=== PATIENT | female | born 2000 | race Hispanic/Latino ===

== ENCOUNTER 2020-05-25 09:20 | Outpatient (CLI) | payer MEDICAID | END 2020-05-25 09:21 | disposition home or self-care (01) | LOC: CSHWCC 09:20 | PROVIDERS: ATTEND Nurse Practitioner Family | DX: T81.89XD Other complications of procedures, not elsewhere classified, subsequent encounter (principal); K65.1 Peritoneal abscess; F32.9 Major depressive disorder, single episode, unspecified; G89.11 Acute pain due to trauma | CPT/HCPCS: 97605 ==

== ENCOUNTER 2020-05-28 11:09 | Outpatient (CLI) | payer MEDICAID | END 2020-05-28 11:10 | disposition home or self-care (01) | LOC: CSHWCC 11:09 | PROVIDERS: ATTEND Nurse Practitioner Family | DX: T81.89XD Other complications of procedures, not elsewhere classified, subsequent encounter (principal); F32.9 Major depressive disorder, single episode, unspecified; G89.11 Acute pain due to trauma; K65.1 Peritoneal abscess | CPT/HCPCS: 97605; 99213; G0463 ==

== ENCOUNTER 2020-06-01 14:41 | Outpatient (CLI) | payer MEDICAID | END 2020-06-01 14:42 | disposition home or self-care (01) | LOC: CSHWCC 14:41 | PROVIDERS: ATTEND Nurse Practitioner Family | DX: T81.89XD Other complications of procedures, not elsewhere classified, subsequent encounter (principal); F32.9 Major depressive disorder, single episode, unspecified; G89.11 Acute pain due to trauma; K65.1 Peritoneal abscess | CPT/HCPCS: 99212; G0463 ==

== ENCOUNTER 2020-06-09 08:59 | Outpatient (CLI) | payer MEDICAID | END 2020-06-09 09:00 | disposition home or self-care (01) | LOC: CSHWCC 08:59 | PROVIDERS: ATTEND Nurse Practitioner Family | DX: T81.89XD Other complications of procedures, not elsewhere classified, subsequent encounter (principal); F32.9 Major depressive disorder, single episode, unspecified; G89.11 Acute pain due to trauma; K65.1 Peritoneal abscess | CPT/HCPCS: 99212; G0463 ==

== ENCOUNTER 2020-06-22 11:36 | Outpatient (CLI) | payer MEDICAID | END 2020-06-22 11:37 | disposition home or self-care (01) | LOC: CSHWCC 11:36 | PROVIDERS: ATTEND Nurse Practitioner Family | DX: T81.89XD Other complications of procedures, not elsewhere classified, subsequent encounter (principal); K65.1 Peritoneal abscess; F32.9 Major depressive disorder, single episode, unspecified; G89.11 Acute pain due to trauma | CPT/HCPCS: 99212; G0463 ==

== ENCOUNTER 2020-06-29 10:26 | Outpatient (CLI) | payer MEDICAID | END 2020-06-29 10:27 | disposition home or self-care (01) | LOC: CSHWCC 10:26 | PROVIDERS: ATTEND Nurse Practitioner Family | DX: T81.89XD Other complications of procedures, not elsewhere classified, subsequent encounter (principal); K65.1 Peritoneal abscess; G89.11 Acute pain due to trauma; F32.9 Major depressive disorder, single episode, unspecified | CPT/HCPCS: 99213; G0463 ==

== ENCOUNTER 2020-07-06 14:21 | Outpatient (CLI) | payer MEDICAID | END 2020-07-06 14:22 | disposition home or self-care (01) | LOC: CSHWCC 14:21 | PROVIDERS: ATTEND Nurse Practitioner Family | DX: T81.89XD Other complications of procedures, not elsewhere classified, subsequent encounter (principal); F32.9 Major depressive disorder, single episode, unspecified; G89.11 Acute pain due to trauma; K65.1 Peritoneal abscess | CPT/HCPCS: 99212; G0463 ==

== ENCOUNTER 2020-07-13 09:39 | Outpatient (CLI) | payer MEDICAID | END 2020-07-13 09:40 | disposition home or self-care (01) | LOC: CSHWCC 09:39 | PROVIDERS: ATTEND Nurse Practitioner Family | DX: T81.89XD Other complications of procedures, not elsewhere classified, subsequent encounter (principal); K65.1 Peritoneal abscess; F32.9 Major depressive disorder, single episode, unspecified; G89.11 Acute pain due to trauma | CPT/HCPCS: 99213; G0463 ==

== ENCOUNTER 2020-10-19 09:59 | Outpatient (CLI) | payer OTHER | END 2020-10-19 10:00 | disposition home or self-care (01) | LOC: CSHWCC 09:59 | PROVIDERS: ATTEND Nurse Practitioner Family | DX: T81.89XD Other complications of procedures, not elsewhere classified, subsequent encounter (principal); F32.9 Major depressive disorder, single episode, unspecified; G89.11 Acute pain due to trauma; K65.1 Peritoneal abscess | CPT/HCPCS: 99213; G0463 ==

== ENCOUNTER 2020-11-02 09:35 | Outpatient (CLI) | payer MEDICAID, OTHER | END 2020-11-02 09:36 | disposition home or self-care (01) | LOC: CSHWCC 09:35 | PROVIDERS: ATTEND Nurse Practitioner Family | DX: T81.89XD Other complications of procedures, not elsewhere classified, subsequent encounter (principal); G89.11 Acute pain due to trauma; F32.9 Major depressive disorder, single episode, unspecified; K65.1 Peritoneal abscess | CPT/HCPCS: 99213; G0463 ==

== ENCOUNTER 2020-11-23 09:52 | Outpatient (CLI) | payer OTHER | END 2020-11-23 09:53 | disposition home or self-care (01) | LOC: CSHWCC 09:52 | PROVIDERS: ATTEND Nurse Practitioner Family | DX: T81.89XA Other complications of procedures, not elsewhere classified, initial encounter (principal); F32.9 Major depressive disorder, single episode, unspecified; G89.11 Acute pain due to trauma; K65.1 Peritoneal abscess | CPT/HCPCS: 99213; G0463 ==

== ENCOUNTER 2021-01-11 08:58 | Outpatient (CLI) | payer OTHER | END 2021-01-11 08:59 | disposition home or self-care (01) | LOC: CSHWCC 08:58 | PROVIDERS: ATTEND Nurse Practitioner Family | DX: T81.89XD Other complications of procedures, not elsewhere classified, subsequent encounter (principal); K65.1 Peritoneal abscess; G89.11 Acute pain due to trauma; F32.9 Major depressive disorder, single episode, unspecified ==

== ENCOUNTER 2021-01-25 09:00 | Outpatient (CLI) | payer OTHER | END 2021-01-25 09:01 | disposition home or self-care (01) | LOC: CSHWCC 09:00 | PROVIDERS: ATTEND Nurse Practitioner Family | DX: T81.89XD Other complications of procedures, not elsewhere classified, subsequent encounter (principal); K65.1 Peritoneal abscess; F32.9 Major depressive disorder, single episode, unspecified; G89.11 Acute pain due to trauma | CPT/HCPCS: 99213; G0463 ==

== ENCOUNTER 2021-04-04 15:05 | Outpatient (CLI) | payer OTHER | END 2021-04-04 15:06 | disposition home or self-care (01) | LOC: CSHWCC 15:05 | PROVIDERS: ATTEND Nurse Practitioner Family | DX: T81.89XD Other complications of procedures, not elsewhere classified, subsequent encounter (principal); F32.9 Major depressive disorder, single episode, unspecified; G89.11 Acute pain due to trauma; K65.1 Peritoneal abscess | CPT/HCPCS: 99213; G0463 ==

== ENCOUNTER 2021-05-09 12:10 | Outpatient (CLI) | payer OTHER | END 2021-05-09 12:11 | disposition home or self-care (01) | LOC: CSHWCC 12:10 | PROVIDERS: ATTEND Nurse Practitioner Family | DX: T81.89XD Other complications of procedures, not elsewhere classified, subsequent encounter (principal); F32.9 Major depressive disorder, single episode, unspecified; K65.1 Peritoneal abscess; G89.11 Acute pain due to trauma | CPT/HCPCS: 99213; G0463 ==

== ENCOUNTER 2021-07-01 10:38 | Outpatient (CLI) | payer OTHER | END 2021-07-01 10:39 | disposition home or self-care (01) | LOC: CSHWCC 10:38 | PROVIDERS: ATTEND Nurse Practitioner Family | DX: T81.89XD Other complications of procedures, not elsewhere classified, subsequent encounter (principal) | CPT/HCPCS: 99213; G0463 ==

== ENCOUNTER 2021-07-15 09:56 | Outpatient (CLI) | payer OTHER | END 2021-07-15 09:57 | disposition home or self-care (01) | LOC: CSHWCC 09:56 | PROVIDERS: ATTEND Nurse Practitioner Family | DX: T81.89XD Other complications of procedures, not elsewhere classified, subsequent encounter (principal) | CPT/HCPCS: 99213; G0463 ==

== ENCOUNTER 2021-08-05 08:19 | Outpatient (CLI) | payer OTHER | END 2021-08-05 08:20 | disposition home or self-care (01) | LOC: CSHWCC 08:19 | PROVIDERS: ATTEND Nurse Practitioner Family | DX: T81.89XD Other complications of procedures, not elsewhere classified, subsequent encounter (principal) ==

== ENCOUNTER 2021-11-21 09:49 | Outpatient (CLI) | payer OTHER | END 2021-11-21 09:50 | disposition home or self-care (01) | LOC: CSHWCC 09:49 | PROVIDERS: ATTEND Preventive Medicine Undersea and Hyperbaric Medicine | DX: T81.89XD Other complications of procedures, not elsewhere classified, subsequent encounter (principal) ==